=== PATIENT | male | born 1940 | race American Indian/Alaskan Native ===

== ENCOUNTER 2017-02-25 10:50 | Outpatient (CLI) | payer MEDICARE ==
--- NOTE | 2017-02-25 15:02 | Ultrasound Report ---
RENAL ULTRASOUND: 02/25/17 CLINICAL: Chronic renal disease. FINDINGS: High resolution ultrasound demonstrated normal nondilated renal collecting systems. Mild increased echogenicity of the kidneys and moderate bilateral cortical irregularity. An exophytic cyst in the midportion of the left kidney measures 1.9 x 1.5 x 1.7 cm. No other cysts. No mass or calculus. The right kidney measures 9.6 x 4.4 x 4.5-cm. The renal parenchyma measures 1.4-cm in thickness. The left kidney measures 9.2 x 3.6 x 4.5-cm. The renal parenchyma measures 1.0-cm in thickness. Normally distended and unremarkable urinary bladder.No bladder wall thickening and no mass or calculus. IMPRESSION: 1. Medical renal disease with borderline small kidneys and renal parenchymal thinning and scarring. 2. No hydronephrosis. 3. A benign 1.9 cm left renal cyst.
== END 2017-02-25 10:51 | disposition home or self-care (01) ==
LOC: SPVWC 10:50
PROVIDERS: ATTEND Internal Medicine Rheumatology
DX: N18.3 Chronic kidney disease, stage 3 (moderate) (principal); N28.1 Cyst of kidney, acquired; N28.89 Other specified disorders of kidney and ureter
CPT/HCPCS: 76770

== ENCOUNTER 2019-08-28 00:32 | Emergency (ER) | payer MEDICARE ==
--- NOTE | 2019-08-28 00:45 | Emergency Department Report ---
ED CPR HPI - General Stated Complaint: CARDIAC ARREST Time Seen by Provider: 08/28/19 00:40 Source: EMS, RN notes reviewed, old records reviewed Mode of arrival: Stretcher Limitations: Altered Mental Status (cardiac arrest) - History of Present Illness Initial Comments: This is a 79-year-old male with history of chronic respiratory failure, CHF, diabetes mellitus, recent COVID-19 infection who [facility]. It was a witnessed arrest. Upon EMS arrival asystole detected. Patient was intubated with ETT. Also treated with the doses of epinephrine. Patient received 20 minutes of ACLS treatment per EMS. MD Complaint: stopped breathing, collapsed during rest Place: NH/SNF Initial Findings in the Field: unresponsive ROSC in the Field: No Associated Injuries: No ED Review of Systems ROS: Stated complaint: CARDIAC ARREST Other details as noted in HPI Comment: Unobtainable due to pts medical conditions (Cardiac arrest) ED Past Medical Hx - Past Medical History Previous Medical History?: Yes Hx Congestive Heart Failure: Yes Hx Diabetes: Yes ED Physical Exam - General General appearance: cachectic, other (Lifeless) - Head Head exam: Present: atraumatic, normocephalic - Eye Eye exam: Present: other (Fixed nonreactive pupils) - ENT ENT exam: Present: mucous membranes dry, other (ETT in place) - Neck Neck exam: Present: normal inspection - Respiratory Respiratory exam: Present: other (No spontaneous respirations) - Cardiovascular Cardiovascular Exam: Present: other (No carotid or femoral pulse palpated) - GI/Abdominal GI/Abdominal exam: Absent: distended - Extremities Exam Extremities exam: Present: other (No traumatic deformities of any extremity) - Neurological Exam Neurological exam: Present: other (Lifeless no spontaneous movement) - Psychiatric Psychiatric exam: Present: other (Lifeless no spontaneous movement) - Skin Skin exam: Present: pallor ED Medical Decision Making - Medical Decision Making This is a 79-year-old male with history of CHF chronic respiratory failure diabetes mellitus recent COVID-19 infection. He received 20 minutes of ACLS including epinephrine and intubation. Persistent asystole without return of spontaneous circulation. Time of 0034 Critical care attestation.: If time is entered above; I have spent that time in minutes in the direct care of this critically ill patient, excluding procedure time. ED Disposition Clinical Impression: Cardiac arrest, CHF (congestive heart failure), COVID-19, Diabetes mellitus Disposition: DC-20 Is pt being admited?: No Does the pt Need Aspirin: No Time of Disposition: 00:34
== END 2019-08-28 03:00 ==
LOC: ED 00:34
DX: I46.9 Cardiac arrest, cause unspecified (principal); U07.1 COVID-19; I50.9 Heart failure, unspecified; E11.9 Type 2 diabetes mellitus without complications
CPT/HCPCS: 31500; 92950; 99285